=== PATIENT | male | born 1995 | race Caucasian/White ===

== ENCOUNTER 2018-05-17 13:02 | Emergency (ER) | END 2018-05-17 16:18 | disposition home or self-care (01) ==

== ENCOUNTER 2018-06-13 08:34 | Emergency (ER) | payer SELFPAY ==
[~2018-06-13] VITALS: Wt 89.0 kg
[~2018-06-13 08:34] MED LIST: ALBU18HF INHALATION; AZIT250T13 PO; PRED20TA PO
[2018-06-13] MEDS ORDERED: ALBUTEROL 0.5% (NEB) 2.5 MG/0.5 ML AMP NEB STA (09:09)
[2018-06-13] MEDS ORDERED: IPRATROPIUM (NEB) 0.5 MG/2.5 ML AMP HHN STA (09:09)
[2018-06-13] MEDS ORDERED: DEXAMETHASONE (1 MG/ML PO SYG) PO ONE (09:30)
[2018-06-13] MEDS ORDERED: FLUT12HF IH (11:04)
[2018-06-13 11:16] VITALS: BP 106/58; PULSE 96; RESP 18
--- NOTE | 2018-06-13 11:50 | ERD ---
ER Documentation Chief Complaint Chief Complaint SORE THROAT, DRY COUGH HPI 22-year-old male with asthma presenting to the emergency department complaining of sore throat and cough for the past week. Patient states that he has been using his albuterol nebulizing every 4 hours for the past couple weeks and still feels that he does not have any improvement with his breathing. Denies chest pain, fevers. ROS All systems reviewed and are negative except as per history of present illness. Medications Home Meds Active Scripts Salmeterol Xinaf-Fluticasone* (Advair HFA*) 45/212 Aerosol Inhaler, 2 INH IH BID, #1 INHALER Prov:MARIE FLYNN PA-C 06/13/18 Prednisone* (Prednisone*) 20 Mg Tab, 60 MG PO DAILY for 4 Days, TAB Prov:ELENITA BECERRIL MD 05/17/18 Reported Medications Azithromycin* (Azithromycin*) 250 Mg Tablet, 250 MG PO DAILY, #4 TAB 05/17/18 Albuterol Sulfate* (Ventolin HFA*) 18 Gm Hfa.aer.ad, 2 PUFF INHALATION Q6H PRN for WHEEZING AND SOB, #1 INHALER 05/17/18 Allergies Allergies: Coded Allergies: No Known Allergy (Verified , 06/13/18) PMhx/Soc History of Surgery: No Anesthesia Reaction: No Hx Neurological Disorder: No Hx Respiratory Disorders: Yes (ASTHMA) Hx Cardiac Disorders: No Hx Psychiatric Problems: No Hx Miscellaneous Medical Probl: No Hx Alcohol Use: No Hx Substance Use: No Hx Tobacco Use: No Physical Exam Vitals Vital Signs Date Temp Pulse Resp B/P (MAP) Pulse Ox O2 O2 Flow FiO2 Time Delivery Rate 06/13/18 98.2 96 18 106/58 99 Room Air 11:16 (74) 06/13/18 80 20 96 21 09:23 06/13/18 98.2 82 18 140/82 96 08:36 (101) Physical Exam GENERAL: WD/WN, in no apparent distress, non-toxic appearing HENT: NC/AT, bilateral TM has good cone of light EYES: Conjunctiva normal NECK: Supple PULM: Inspiratory and expiratory wheezing. No rales, crackles, or rhonchi heard. No tripod position, normal labored breathing, no stridor, no evidence of using accessory muscles. CV: Good capillary refill, good S1 and S2, no murmurs appreciated GI: Non-distended, no guarding BACK: No masses. EXT: No clubbing, cyanosis, or edema. NEURO: Moves on all fours SKIN: intact, no cyanosis. PSYCH: Normal mood Results 24 hrs Current Medications Medications Dose Sig/Edith Start Time Status Last (Trade) Ordered Route PRN Stop Time Admin Dose Reason Admin Albuterol 10 mg ONCE STAT 06/13/18 DC 06/13/18 (Proventil NEB 09:09 06/13/18 09:23 0.5% (Neb)) 09:18 10 mg ONCE ONCE 06/13/18 DC 06/13/18 Dexamethasone PO 09:30 06/13/18 09:24 (Decadron 09:31 Intensol Liquid) Ipratropium 0.5 mg ONCE STAT 06/13/18 DC 06/13/18 [place] HHN 09:09 06/13/18 09:23 (Atrovent 09:18 0.02% (Neb)) Procedures/MDM 4-year-old male patient presents to the ER with asthma exacerbation, low suspicion for status asthmaticus, pneumonia, inhaled foreign body, or other life threatening pulmonary emergencies due to physical examination. RT was consulted in the ED, breathing treatment and Decadron was administered. Patient was saturating well on room air and wheezing improved. Hemodynamically stable. Patient was saturating well on room air and shortness of breath improved. Prescription for albuterol was given, discussed to have a close follow-up with a primary care physician, discussed to return to the ED if not improving as expected or if condition worsens. Patient understood and agreed with this plan. Departure Diagnosis: Primary Impression: Asthma exacerbation Condition: Stable Patient Instructions: Asthma, Asthma Medications, Asthma, Acute (Adult) Referrals: COMMUNITY CLINICS YOU HAVE RECEIVED A MEDICAL SCREENING EXAM AND THE RESULTS INDICATE THAT YOU DO NOT HAVE A CONDITION THAT REQUIRES URGENT TREATMENT IN THE EMERGENCY DEPARTMENT. FURTHER EVALUATION AND TREATMENT OF YOUR CONDITION CAN WAIT UNTIL YOU ARE SEEN IN YOUR DOCTORS OFFICE WITHIN THE NEXT 1-2 DAYS. IT IS YOUR RESPONSIBILITY TO MAKE AN APPOINTMENT FOR FOLOW-UP CARE. IF YOU HAVE A PRIMARY DOCTOR --you should call your primary doctor and schedule an appointment IF YOU DO NOT HAVE A PRIMARY DOCTOR YOU CAN CALL OUR PHYSICIAN REFERRAL HOTLINE AT IF YOU CAN NOT AFFORD TO SEE A PHYSICIAN YOU CAN CHOSE FROM THE FOLLOWING [facility] CLINICS [facility] [address] [facility] [address] [facility] [address] [facility] [address] [facility]. [facility] [address] [facility]. [facility] [address] Additional Instructions: Visite a reed francisca castaneda para un EXAMEN.Regrese a estas instalaciones si no se mejora delmi esperbamos o delmi le dijimos. [place] toda la medicina ladonna y delmi se le indic. Regrese a estas instalaciones si no se mejora delmi esperbamos o delmi le dijimos. MARIE FLYNN PA-C Jun 13, 2018 11:50
== END 2018-06-13 11:18 | disposition home or self-care (01) ==
LOC: FTE 08:34
DX: J45.901 Unspecified asthma with (acute) exacerbation (principal); R05 Cough
CPT/HCPCS: 71045; 94644

== ENCOUNTER 2018-06-20 21:27 | Emergency (ER) | payer SELFPAY ==
[~2018-06-20] VITALS: Wt 74.8 kg
[~2018-06-20 21:27] MED LIST changes: +FLUT12HF IH
[2018-06-20] MEDS ORDERED: ALBUTEROL 0.083% (NEB) 2.5 MG/3 ML AMP HHN STA (23:52)
[2018-06-21] MEDS ORDERED: DEXAMETHASONE 10 MG/ML 1 ML INJ IM ONE
[2018-06-21] MEDS ORDERED: IPRATROPIUM (NEB) 0.5 MG/2.5 ML AMP HHN ONE
[2018-06-21] MEDS ORDERED: ALBU8.5H8 INH (01:12)
[2018-06-21] MEDS ORDERED: PRED20TA PO (01:12)
--- NOTE | 2018-06-21 01:16 | ERD ---
ER Documentation Chief Complaint Chief Complaint ST, COUGH X'S 5 DAYS HPI 22-year-old male presenting with sore throat and wheezing type cough times 5 days. Patient has a long history of asthma exacerbation. He has been using inhaler at home but no steroids. No fevers. Patient denies any chest pain or shortness of breath. Medical history is asthma. NKDA. Surgical history denies. Social history denies ROS All systems reviewed and are negative except as per history of present illness. Medications Home Meds Active Scripts Prednisone* (Prednisone*) 20 Mg Tab, 40 MG PO DAILY for 4 Days, TAB Prov:GAUTAM ORTIZ PA-C 06/21/18 Albuterol Sulfate* (Proair HFA*) 8.5 Gm Hfa.aer.ad, 2 PUFF INH Q4, #1 INHALER Prov:GAUTAM ORTIZ PA-C 06/21/18 Salmeterol Xinaf-Fluticasone* (Advair HFA*) 45/212 Aerosol Inhaler, 2 INH IH BID, #1 INHALER Prov:MARIE FLYNN PA-C 06/13/18 Prednisone* (Prednisone*) 20 Mg Tab, 60 MG PO DAILY for 4 Days, TAB Prov:ELENITA BECERRIL MD 05/17/18 Reported Medications Azithromycin* (Azithromycin*) 250 Mg Tablet, 250 MG PO DAILY, #4 TAB 05/17/18 Albuterol Sulfate* (Ventolin HFA*) 18 Gm Hfa.aer.ad, 2 PUFF INHALATION Q6H PRN for WHEEZING AND SOB, #1 INHALER 05/17/18 Allergies Allergies: Coded Allergies: No Known Allergy (Verified , 06/21/18) PMhx/Soc History of Surgery: No Anesthesia Reaction: No Hx Neurological Disorder: No Hx Respiratory Disorders: Yes (ASTHMA) Hx Cardiac Disorders: No Hx Psychiatric Problems: No Hx Miscellaneous Medical Probl: No Hx Alcohol Use: No Hx Substance Use: No Hx Tobacco Use: No Smoking Status: Never smoker FmHx Family History: No diabetes, No coronary disease, No other Physical Exam Vitals Vital Signs Date Temp Pulse Resp B/P (MAP) Pulse Ox O2 O2 Flow FiO2 Time Delivery Rate 06/21/18 87 20 98 21 00:17 06/20/18 97.8 71 18 153/76 96 21:29 (101) Physical Exam GENERAL: The patient is well-appearing, well-nourished, in no acute distress HEENT: Atraumatic. Conjunctivae are pink. Pupils equal, round, and reactive to light. There is no scleral icterus. Tympanic membranes clear bilaterally. Oropharynx clear. NECK: C-spine is soft and supple. There is no meningismus. There is no cervical lymphadenopathy. CHEST: Diffuse wheezing heard on auscultation. No focal rhonchi HEART: Regular rate and rhythm. No murmurs, clicks, rubs or gallops. No S3 or S4. Results 24 hrs Current Medications Medications Dose Sig/Edith Start Time Status Last (Trade) Ordered Route PRN Stop Time Admin Dose Reason Admin Albuterol 5 mg ONCE STAT 06/20/18 DC 06/21/18 (Proventil HHN 23:52 06/20/18 00:16 0.083% (Neb)) 23:54 Ipratropium 0.5 mg ONCE ONCE 06/21/18 DC 06/21/18 [place] HHN 00:00 00:17 (Atrovent 06/21/18 00:01 0.02% (Neb)) 10 mg ONCE ONCE 06/21/18 DC 06/21/18 Dexamethasone IM 00:00 00:17 (Decadron) 06/21/18 00:01 Procedures/MDM ER course: Albuterol and Atrovent breathing treatment given ED. IM injection of Decadron given. DIAGNOSTIC IMAGING REPORT Patient: LEXA DESAI : 1995 Age: 22 Sex: M MR #: [id number] DOS: 06/20/18 2352 Ordering MD: SOCORRO ORTIZ PA-C Location: [facility] Room/Bed: PROCEDURE: XR Chest. CLINICAL INDICATION: Cough TECHNIQUE: Single frontal view of the chest was obtained COMPARISON: DR CHEST 06/13/2018; CT 05/17/2018 FINDINGS: The heart and mediastinum are within normal limits. The lungs are clear. There is no pleural effusion or pneumothorax. IMPRESSION: No acute disease. MDM:22-year-old male presenting with cough and wheezing. I have low suspicion for pneumonia. I have low suspicion for respiratory distress or hypoxia. Patient is discharged with stricter precautions and told to follow-up with primary care within 1-2 days for close evaluation. Patient is discharged stricter precautions and supportive medications. Patient is told symptoms change or worsen to return immediately to the ER. All questions answered at discharge Departure Diagnosis: Primary Impression: Asthma exacerbation Condition: Stable Patient Instructions: Asthma Referrals: COMMUNITY CLINICS YOU HAVE RECEIVED A MEDICAL SCREENING EXAM AND THE RESULTS INDICATE THAT YOU DO NOT HAVE A CONDITION THAT REQUIRES URGENT TREATMENT IN THE EMERGENCY DEPARTMENT. FURTHER EVALUATION AND TREATMENT OF YOUR CONDITION CAN WAIT UNTIL YOU ARE SEEN IN YOUR DOCTORS OFFICE WITHIN THE NEXT 1-2 DAYS. IT IS YOUR RESPONSIBILITY TO MAKE AN APPOINTMENT FOR FOLOW-UP CARE. IF YOU HAVE A PRIMARY DOCTOR --you should call your primary doctor and schedule an appointment IF YOU DO NOT HAVE A PRIMARY DOCTOR YOU CAN CALL OUR PHYSICIAN REFERRAL HOTLINE AT IF YOU CAN NOT AFFORD TO SEE A PHYSICIAN YOU CAN CHOSE FROM THE FOLLOWING [facility] CLINICS [facility] [address] [facility] [address] [address] [facility] [address] [facility] [address] [facility]. [facility]. [address] Additional Instructions: FOLLOW UP WITH YOUR PRIMARY CARE PHYSICIAN TOMORROW.Return to this facility if y ou are not improving as expected. GAUTAM ORTIZ PA-C Jun 21, 2018 01:15
[2018-06-21 01:35] VITALS: BP 121/70; PULSE 84; RESP 18
== END 2018-06-21 01:36 | disposition home or self-care (01) ==
LOC: FTE 21:27
DX: J45.901 Unspecified asthma with (acute) exacerbation (principal); R06.02 Shortness of breath
CPT/HCPCS: 71045; 93005; 94664; 96372

== ENCOUNTER 2018-10-18 10:01 | Emergency (ER) | payer MEDICAID, OTHER ==
[~2018-10-18] VITALS: Ht 162.6 cm; Wt 72.3 kg
[~2018-10-18 10:01] MED LIST changes: +ALBU8.5H8 INH
[2018-10-18 10:03] VITALS: BP 123/73; PULSE 69; RESP 20; Ht 162.6 cm; Wt 72.3 kg
[2018-10-18] MEDS ORDERED: ALBUTEROL 0.083% (NEB) 2.5 MG/3 ML AMP HHN STA (10:24)
[2018-10-18] MEDS ORDERED: IPRATROPIUM (NEB) 0.5 MG/2.5 ML AMP HHN ONE (10:30)
[2018-10-18] MEDS ORDERED: DEXAMETHASONE 10 MG/ML 1 ML INJ IM ONE (10:30)
[2018-10-18] MEDS ORDERED: PREL60L PO (10:56)
[2018-10-18] MEDS ORDERED: ALBU8.5H8 INH (10:56)
--- NOTE | 2018-10-18 11:20 | ERD ---
ER Documentation Chief Complaint Chief Complaint PT with cough and congestion X 3 days. HPI 22-year-old male presenting with cough and congestion x3 days. Patient has a mildly decreased appetite. Patient has productive cough with some phlegm but no fevers. He states he has a history of asthma and has been drinking albuterol however not using inhaler. He has not noticed any improvement with the liquid albuterol. NKDA. Surgical history denies. Social history denies. No sick contacts. ROS All systems reviewed and are negative except as per history of present illness. Medications Home Meds Active Scripts Albuterol Sulfate* (Proair HFA*) 8.5 Gm Hfa.aer.ad, 2 PUFF INH Q4, #1 INHALER Prov:GAUTAM ORTIZ PA-C 10/18/18 Prednisolone* (Prelone*) 15 Mg/5 Ml Solution, 5 ML PO DAILY for 5 Days, BOTTLE Prov:GAUTAM ORTIZ PA-C 10/18/18 Prednisone* (Prednisone*) 20 Mg Tab, 40 MG PO DAILY for 4 Days, TAB Prov:GAUTAM ORTIZ PA-C 06/21/18 Albuterol Sulfate* (Proair HFA*) 8.5 Gm Hfa.aer.ad, 2 PUFF INH Q4, #1 INHALER Prov:GAUTAM ORTIZ PA-C 06/21/18 Salmeterol Xinaf-Fluticasone* (Advair HFA*) 45/212 Aerosol Inhaler, 2 INH IH BID, #1 INHALER Prov:MARIE FLYNN PA-C 06/13/18 Prednisone* (Prednisone*) 20 Mg Tab, 60 MG PO DAILY for 4 Days, TAB Prov:ELENITA BECERRIL MD 05/17/18 Reported Medications Azithromycin* (Azithromycin*) 250 Mg Tablet, 250 MG PO DAILY, #4 TAB 05/17/18 Albuterol Sulfate* (Ventolin HFA*) 18 Gm Hfa.aer.ad, 2 PUFF INHALATION Q6H PRN for WHEEZING AND SOB, #1 INHALER 05/17/18 Allergies Allergies: Coded Allergies: No Known Allergy (Verified , 06/21/18) PMhx/Soc Medical and Surgical Hx: pt denies Surgical Hx History of Surgery: No Anesthesia Reaction: No Hx Neurological Disorder: No Hx Respiratory Disorders: Yes (ASTHMA) Hx Cardiac Disorders: No Hx Psychiatric Problems: No Hx Miscellaneous Medical Probl: No Hx Alcohol Use: No Hx Substance Use: No Hx Tobacco Use: No Smoking Status: Never smoker FmHx Family History: No diabetes, No coronary disease, No other Physical Exam Vitals Vital Signs Date Temp Pulse Resp B/P (MAP) Pulse Ox O2 O2 Flow FiO2 Time Delivery Rate 10/18/18 71 20 96 21 10:43 10/18/18 97.3 69 20 123/73 96 10:03 (90) Physical Exam GENERAL: The patient is well-appearing, well-nourished, in no acute distress HEENT: Atraumatic. Conjunctivae are pink. Pupils equal, round, and reactive to light. There is no scleral icterus. Tympanic membranes clear bilaterally. Oropharynx clear. NECK: C-spine is soft and supple. There is no meningismus. There is no cervical lymphadenopathy. CHEST: Diffuse wheezing heard on auscultation. No rhonchi. HEART: Regular rate and rhythm. No murmurs, clicks, rubs or gallops. Results 24 hrs Current Medications Medications Dose Sig/Edith Start Time Status Last (Trade) Ordered Route PRN Stop Time Admin Dose Reason Admin Albuterol 5 mg ONCE STAT 10/18/18 DC 10/18/18 (Proventil HHN 10:24 10/18/18 10:42 0.083% (Neb)) 10:25 Ipratropium 0.5 mg ONCE ONCE 10/18/18 DC 10/18/18 [place] HHN 10:30 10/18/18 10:42 (Atrovent 10:31 0.02% (Neb)) 10 mg ONCE ONCE 10/18/18 DC 10/18/18 Dexamethasone IM 10:30 10/18/18 10:28 (Decadron) 10:31 Procedures/MDM ER course: Albuterol and Atrovent breathing treatment given ED. Decadron given ED. Symptoms improved. MDM: 22-year-old male presenting with cough and congestion. I have low suspicion for respiratory distress or hypoxia. I have low suspicion for pneumonia. Patient symptoms improved with treatment in the ER. Patient is discharged with supportive medications. Patient is told symptoms change or worsen to return immediately to the ER. All questions answered at discharge Departure Diagnosis: Primary Impression: Asthma exacerbation Condition: Stable Patient Instructions: Asthma, Acute (Child) Referrals: [facility] YOU HAVE RECEIVED A MEDICAL SCREENING EXAM AND THE RESULTS INDICATE THAT YOU DO NOT HAVE A CONDITION THAT REQUIRES URGENT TREATMENT IN THE EMERGENCY DEPARTMENT. FURTHER EVALUATION AND TREATMENT OF YOUR CONDITION CAN WAIT UNTIL YOU ARE SEEN IN YOUR DOCTORS OFFICE WITHIN THE NEXT 1-2 DAYS. IT IS YOUR RESPONSIBILITY TO MAKE AN APPOINTMENT FOR FOLOW-UP CARE. IF YOU HAVE A PRIMARY DOCTOR --you should call your primary doctor and schedule an appointment IF YOU DO NOT HAVE A PRIMARY DOCTOR YOU CAN CALL OUR PHYSICIAN REFERRAL HOTLINE AT IF YOU CAN NOT AFFORD TO SEE A PHYSICIAN YOU CAN CHOSE FROM THE FOLLOWING [facility] [address] [facility]. [facility] [address] [facility] [address] [facility] [address] [facility] [address] [facility]. [facility] [address] Additional Instructions: FOLLOW UP WITH YOUR PRIMARY CARE PHYSICIAN TOMORROW.Return to this facility if you are not improving as expected. GAUTAM ORTIZ PA-C October 18, 2018 11:20
[2018-10-18] MEDS ORDERED: ALBU2.5V3 NEB (11:35)
== END 2018-10-18 12:04 | disposition home or self-care (01) ==
LOC: FTE 10:01
DX: J45.901 Unspecified asthma with (acute) exacerbation (principal)
CPT/HCPCS: 94664; 96372; J1100; Z7502; Z7610